=== PATIENT | female | born 1955 | race Caucasian/White ===

== ENCOUNTER 2016-10-23 23:36 | Emergency (ER) | payer OTHER ==
--- NOTE | 2016-10-24 02:25 | ED ORDER SUMMARY ---
..... Patient: RIA WEST OrderSheet [facility] VisitID: [id number] [place] [address] 61y, F Registration Date/Time: 10/23/2016 ORDER SHEET Weight: 62.1 kg (stated) Allergies: Duloxetine, Phenytoin, Sulfa Antibiotics GENERAL ORDERS: Chest 1V Urgent (:10/24/2016 Nelida OVIEDO) (1:25 RFay) Shoulder 2V or more Right Urgent (:10/24/2016 Nelida OVIEDO) (1:25 RFay) CBC w Diff Urgent (:10/24/2016 Nelida OVIEDO) (Ack 1:41 Zhang) (1:58 JQuivey R.N.) CMP Urgent (:10/24/2016 Nelida OVIEDO) (Ack 1:41 Zhang) (1:58 JQuivey R.N.) UA-Culture if indicated Urgent (:10/24/2016 Nelida OVIEDO) (Ack 1:41 Zhang) (1:55 JQuivey R.N.) MEDICATION ORDERS: Acetaminophen PO 650 mg (NOW) (01:01 10/24/2016 Nelida OVIEDO) (Ack 1:05 JDeElena R.N.) Ibuprofen PO 800 mg (NOW) (:10/24/2016 Nelida OVIEDO) (Ack 1:05 JDeElena R.N.) (Cancelled: Patient Refusal1:55 JQuivey R.N.) IV FLUIDS: Dilaudid IV 1 mg (HIGH ALERT MEDICATION, NOW) (01:02 10/24/2016 Nelida OVIEDO) (Ack 1:05 JDeElena R.N.) (1:58 JQuivey R.N.) IV Saline Lock (01:56 10/24/2016 JQuivey R.N. written order Nelida OVIEDO) (1:57 JQuivey R.N.) ORDER SHEET NOTES: [Electronically signed by Gonzales Villalta R.N. (03:00 10/24/2016)] [Electronically signed by Henrietta Nxi MD (13:26 11/01/2016)] [Electronically locked/signed by Gonzales Villalta R.N. (03:00 10/24/2016)]
--- NOTE | 2016-10-24 02:25 | ED NURSING NOTES ---
Clinical Report - Nurses [facility] [address] [place] [address] 10/23/2016 23:37 [id number] Triage time 23:30 Oct 23 2016. Acuity: LEVEL 3. Chief Complaint: RIGHT UPPER EXTREMITY PAIN. Location of symptoms- (and (R) Knee Pain). Alert. YUNG COMA SCORE: Lackey Coma Scale: 15- eyes open spontaneously (4); best verbal response- oriented x 4 (5); best motor response- obeys commands (6). --00:01 Gonzales Chambers R.N. 23:37 10/23/16. BP: 159/79. HR: 92. RR: 18. O2 saturation: 96% on room air. Temp: 101.2 F. Pain level now: 04/03. --00:01 Gonzales Chambers R.N. Weight: 62.1 kg stated. Height/Length: 60 inches Per Patient. BMI: 26.7. --23:39 Gonzales Chambers R.N. Medications Doc-Q-Lax Oral 100mg, daily. Famotidine Oral 10 mg, at bedtime. Gabapentin Oral 300 mg, 2x a day. Keppra Oral 1000mg, 2x a day. LamoTRIgine Oral (Tablet Dispersible 100 mg) 1 tablet, 2 x daily. Levothyroxine Sodium Oral 50 mcg, daily. Meloxicam Oral (Tablet 15 mg) 1 tablet, daily. Pantoprazole Sodium Oral 40 mg, daily. Singulair Oral 10 mg, at bedtime. --00:06 Gonzales Chambers R.N. BusPIRone HCl Oral 10 mg, 3x a day. CeleXA Oral 40 mg, daily. TiZANidine HCl Oral 4 mg, 4x a day as needed. --00:07 Gonzales Chambers R.N. Suboxone Sublingual (Film 8-2 mg) 1/2 tab, 3 x daily. TraZODone HCl Oral 100 mg, 2x a day. --00:08 Rtish, Gonzales, R.N. Timolol Maleate PF Ophthalmic (Solution 0.5 %) 1 drop OD, daily. --00:13 Gonzales Chambers R.N. Combivent Respimat Inhalation (Aerosol Solution 20-100 mcg/act) one puff, 4 x daily. Flonase Nasal 1 spray, 2x a day. --00:56 Gonzales Chambers R.N. Allergies Duloxetine. --23:43 Gonzales Chambers R.N. Phenytoin. --:47 Gonzales Chambers R.N. Sulfa Antibiotics. --:47 Gonzales Chambers R.N. History Arrived by private vehicle. Historian: patient. Accompanied by family. Primary physician (Efren). ( (R) shoulder and (R) Knee Pain, which started today. She states that she pulled herself up in bed last night and thinks that she might have strained her muscles(s). She is uncertain why the (R) Knee is hurting. She also states that she is withdrawing herself from Buprenorphine-naloxone anticipating surgery on her (L) Knee in 4 days.). This occurred today (about 12 hours ago). Treatment BAND MASTER: None. PAST MEDICAL HX: Hypertension. Tetanus status: up-to-date. SOCIAL HX: Heavy tobacco smoker (cigarette)- less than 1 pack per day. History of drug use: marijuana. No alcohol use. No infectious disease exposure. ABUSE ASSESSMENT: No report of abuse. NUTRITIONAL RISK ASSESSMENT: The nutritional risk assessment revealed no deficiencies. FUNCTIONAL ASSESSMENT: Functional assessment: no impairments noted. LEARNING NEEDS ASSESSMENT: The learning needs assessment revealed no barriers. FALL RISK ASSESSMENT: Fall risk assessment completed. Risk factors identified include severe pain and patient impairment of mobility. SKIN INTEGRITY ASSESSMENT: Skin integrity risk assessment completed. No skin integrity risk identified. --00:01 Gonzales Chambers R.N. PROBLEMS: Thyroid Disease. Seizures. PTSD. Dysphonia. Depression. Hyperlipidemia. GERD. Dysphagia. --23:56 Gonzales Chambers R.N. ADDITIONAL SURGERIES: Elbow. Hysterectomy. Knee Surgery. Laparoscopy. --23:59 Gonzales Chambers R.N. Interventions ID and allergy band on patient. To treatment room. --00:01 Gonzales Chambers R.N. PHYSICAL ASSESSMENT To room via wheelchair. GENERAL / NEURO / PSYCH: Oriented X 4. Appears in pain. EXTREMITIES: Limited ROM present in the right shoulder and right knee. No upper extremity edema. SKIN: Skin intact. Skin is warm and dry. --00:00 Gonzales Chambers R.N. NURSING PROGRESS NOTES Patient gowned. Reassurance given. Patient identifiers checked. Call light placed in reach. Side rails up x 2. Bed placed in lowest position. Brakes of bed on. Patient ready for evaluation- chart flagged and ED physician notified. --00:00 Gonzales Chambers R.N. 01:49 10/24/2016 Site #1 started via IV in the right hand with an 20g angiocath, with aseptic technique and good blood return; one attempt. Blood drawn: rainbow set. Labeled in the presence of the patient and sent to the lab. Saline lock flushed with 10 mL saline. --01:57 Gonzales Villalta R.N. 01:50 10/24/2016 Acetaminophen (APAP) PO 650 mg given. Allergies verified and confirmed 5 rights. --01:55 Gonzales Villalta R.N. 01:56 10/24/2016 Dilaudid (HYDROmorphone HCl PF) IVP 1 mg given over 2 minute(s) via site #1. Allergies verified, confirmed 5 rights and sedative warning given to the patient. IV patency established. IV site checked: no pain, redness, or swelling. IV flushed thoroughly pre- and post-medication administration. --01:58 Gonzales Villalta R.N. 02:36. The patient is calm and resting quietly. GENERAL / NEURO / PSYCH: Alert. Oriented X 4. RESPIRATORY: No respiratory distress. EXTREMITIES: Neuro-vascular status intact to the extremity. SKIN: Skin is warm and dry. --02:42 Gonzales Villalta R.N. DISPOSITION / DISCHARGE 02:40 10/24/2016 Site #1 removed upon discharge. Catheter intact. Bandage applied. --02:40 Gonzales Villalta R.N. Departure time: 02:40. Condition at departure: stable. No learning barriers present. Discharge instructions provided and reviewed with rack washer and the patient. Reviewed medication(s) side effects, precautions, dosing and course information. Prescription(s) given to the patient. Patient and rack washer verbalized understanding. Written instructions provided in Hungarian. The patient was discharged home and accompanied by rack washer. She left the Emergency Department in a wheelchair and via private vehicle. Book Canvasser driving. FALL RISK ASSESSMENT: Fall risk assessment completed. No fall risk identified. --02:40 Gonzales Villalta R.N. 02:32 10/24/16. BP: 136/59. HR: 83. RR: 16. O2 saturation: 96% on room air. Temp: 99.5 F (oral). Pain level now: 11/01. --02:40 Gonzales Villalta R.N. Locked/Released at 10/24/2016 3:00 by Gonzales Villalta R.N.
--- NOTE | 2016-10-24 02:25 | ED ORDER SUMMARY ---
..... Patient: RIA WEST OrderSheet [facility] VisitID: [id number] [place] [address] 61y, F Registration Date/Time: 10/23/2016 ORDER SHEET Weight: 62.1 kg (stated) Allergies: Duloxetine, Phenytoin, Sulfa Antibiotics GENERAL ORDERS: Chest 1V Urgent (:10/24/2016 Nelida OVIEDO) (1:25 RFay) Shoulder 2V or more Right Urgent (:10/24/2016 Nelida OVIEDO) (1:25 RFay) CBC w Diff Urgent (:10/24/2016 Nelida OVIEDO) (Ack 1:41 Zhang) (1:58 JQuivey R.N.) CMP Urgent (:10/24/2016 Nelida OVIEDO) (Ack 1:41 Zhang) (1:58 JQuivey R.N.) UA-Culture if indicated Urgent (:10/24/2016 Nelida OVIEDO) (Ack 1:41 Zhang) (1:55 JQuivey R.N.) MEDICATION ORDERS: Acetaminophen PO 650 mg (NOW) (01:01 10/24/2016 Nelida OVIEDO) (Ack 1:05 JDeElena R.N.) Ibuprofen PO 800 mg (NOW) (:10/24/2016 Nelida OVIEDO) (Ack 1:05 JDeElena R.N.) (Cancelled: Patient Refusal1:55 JQuivey R.N.) IV FLUIDS: Dilaudid IV 1 mg (HIGH ALERT MEDICATION, NOW) (01:02 10/24/2016 Nelida OVIEDO) (Ack 1:05 JDeElena R.N.) (1:58 JQuivey R.N.) IV Saline Lock (01:56 10/24/2016 JQuivey R.N. written order Nelida OVIEDO) (1:57 JQuivey R.N.) ORDER SHEET NOTES: [Electronically signed by Gonzales Villalta R.N. (03:00 10/24/2016)] [Electronically signed by Henrietta Nix MD (13:26 11/01/2016)] [Electronically locked/signed by Gonzales Villalta R.N. (03:00 10/24/2016)]
--- NOTE | 2016-10-24 02:25 | ED CLINICAL REPORT ---
Clinical Report - Physicians/Mid Levels [facility] [address] [place] [address] 10/23/2016 23:37 Patient: RIA WEST Time Seen: 23:42. Arrived- By private vehicle. Historian- patient. HISTORY OF PRESENT ILLNESS Chief Complaint: R shoulder and R knee pain. At its maximum, severity described as moderate. When seen in the E.D., severity described as moderate. Modifying factors- worsened by movement. Not relieved by anything. This started last night shoulder--R knee started hurting within the past couple of days and is still present. No current or associated symptoms. (Pt states she is preparing for left knee surgery, so she has been taken off of her pain medication. Since then, her R knee has started to hurt more, though pt states it is chronically painful, due to using it more than the L leg. Pt states that last night, she pulled herself up in bed, and thinks she might have strained her R shoulder.). Similar symptoms previously: Recent medical care: The patient was seen recently at another facility in a clinic. REVIEW OF SYSTEMS No fever, sore throat, sinus drainage, nasal congestion or cough. No difficulty breathing, chest pain, abdominal pain, nausea or vomiting. No diarrhea, black stools, bloody stools, chills or difficulty with urination. No skin rash, back pain, calf pain, headache or blackouts. No double vision. No difficulty with ambulation. All systems otherwise negative, except as recorded above. PAST HISTORY Problems: Hypertension. Thyroid Disease. Seizures. PTSD. Dysphonia. Depression. Hyperlipidemia. GERD. Dysphagia. Additional Surgeries: Elbow. Hysterectomy. Knee Surgery. Laparoscopy. Medications: Combivent Respimat Inhalation (Aerosol Solution 20-100 mcg/act) one puff, 4 x daily. Flonase Nasal 1 spray, 2x a day. Timolol Maleate PF Ophthalmic (Solution 0.5 %) 1 drop OD, daily. Suboxone Sublingual (Film 8-2 mg) 1/2 tab, 3 x daily. TraZODone HCl Oral 100 mg, 2x a day. BusPIRone HCl Oral 10 mg, 3x a day. CeleXA Oral 40 mg, daily. TiZANidine HCl Oral 4 mg, 4x a day as needed. Doc-Q-Lax Oral 100mg, daily. Famotidine Oral 10 mg, at bedtime. Gabapentin Oral 300 mg, 2x a day. Keppra Oral 1000mg, 2x a day. LamoTRIgine Oral (Tablet Dispersible 100 mg) 1 tablet, 2 x daily. Levothyroxine Sodium Oral 50 mcg, daily. Meloxicam Oral (Tablet 15 mg) 1 tablet, daily. Pantoprazole Sodium Oral 40 mg, daily. Singulair Oral 10 mg, at bedtime. Allergies: Duloxetine. Phenytoin. Sulfa Antibiotics. SOCIAL HISTORY Smoker- current status unknown. History of drug use: marijuana. No alcohol use. ADDITIONAL NOTES The nursing notes have been reviewed. PHYSICAL EXAM Vital Signs: 10/23/2016 23:37 BP: 159/79. HR: 92. RR: 18. O2 saturation: 96%. Temp: 101.2 F. Pain level now: 04/03. Have been reviewed. Appearance: Alert. No acute distress. Eyes: Pupils equal, round and reactive to light. Eyes normal inspection. ENT: Nose normal. Pharynx normal. Neck: Normal inspection. CVS: Normal heart rate and rhythm. Heart sounds normal. Pulses normal. Respiratory: No respiratory distress. Breath sounds normal. Chest nontender. Abdomen: No visible injury. Soft and nontender. Obese. Back: Normal inspection. No CVA tenderness. Skin: Skin warm and dry. Normal skin color. No rash. Normal skin turgor. Extremities: Right shoulder: moderate tenderness located in the anterior aspect of the shoulder and AC joint. Limited ROM due to pain (diminished abduction, extension and internal rotation). Neurovascular intact distally. No erythema, swelling, laceration, abrasion or ecchymosis. No puncture wound, foreign body or deformity. No joint effusion. No lower extremity edema. (PT has tenderness of her R knee along the joint line, but no instability. No erythema. ROM is mildly limited.). Neuro: Oriented X 3. No motor deficit. No sensory deficit. LABS, X-RAYS, AND EKG Chest X-ray: No acute disease. Normal lung markings present. Normal heart size. Mediastinum normal. Great vessels normal. Soft tissues normal. No infiltrate. No fracture. No bony lesion present. Views: PA and lateral. Technique: good. The X-rays were independently viewed by me and interpreted contemporaneously by me. Prior films were not available for comparison. Rt Shoulder X-ray: No fracture. Normal alignment. No bony lesion, air in the soft tissue or foreign body. Soft tissues normal. Joint spaces normal. Views: AP with external rotation, AP with internal rotation and axillary. Technique: good. The X-rays were independently viewed by me and interpreted contemporaneously by me. Prior films were not available for comparison. Laboratory Tests: UA-Culture if indicated: (JEMIMA: 10/24/2016 01:00) ( MsgRcvd 10/24/2016 01:33) Final results Test Result Flag Units (Reference) URINE COLOR YELLOW URINE APPEARANCE CLEAR URINE GLUCOSE NEGATIVE (NEGATIVE) URINE BILIRUBIN NEGATIVE (NEGATIVE) URINE KETONE NEGATIVE (NEGATIVE) URINE SPECIFIC GRAVITY <= 1.005 L (1.010-1.030) URINE PH 6.0 (5.0-8.0) URINE PROTEIN NEGATIVE (NEGATIVE) URINE UROBILINOGEN 0.2 EU/dL (0.2-1.0) URINE NITRITE NEGATIVE (NEGATIVE) URINE BLOOD 1+ (NEGATIVE) URINE LEUK ESTERASE NEGATIVE (NEGATIVE) URINE RBC 1-3 rbc/hpf (0-1) URINE WBC 0-1 wbc/hpf (0-1) URINE EPITHELIAL CELLS 0-1 EPI/hpf (0-5) URINE BACTERIA NONE SEEN (NONE SEEN) URINE COMMENT CULT NOT INDICATED URINE CULTURES ARE SET-UP BASED ON THE FOLLOWING CRITERIA:POSITIVE NITRITEPOSITIVE LEUKOCYTE ESTERASEGREATER THAN 10 WHITE BLOOD CELLSMODERATE (2+) OR GREATER BACTERIA CBC w Diff: (JEMIMA: 10/24/2016 01:45) ( MsgRcvd 10/24/2016 01:59) Final results Test Result Flag Units (Reference) WHITE BLOOD COUNT 10.8 K/uL (4.5-11.5) RED BLOOD COUNT 4.18 M/uL (4.00-5.20) HEMOGLOBIN 13.0 gm/dL (12.0-16.0) HEMATOCRIT 38.5 % (36.0-46.0) MEAN CELL VOLUME 92 fL (80-100) MEAN CORPUSCULAR HGB 31 pg (26-34) MEAN CORPUSCULAR HGB CONC 34 g/dL (31-37) RED CELL DISTRIBUTION WIDTH 13.2 % (11.6-14.8) PLATELET COUNT 270 K/uL (150-400) NEUTROPHIL % 64.2 % (50-75) LYMPH % 22.4 L % (25-40) MONO % 11.1 % (3-14) EOSINOPHIL % 1.9 % (0-4) BASOPHIL % 0.4 % (0-2) CMP: (JEMIMA: 10/24/2016 01:45) ( MsgRcvd 10/24/2016 02:10) Final results Test Result Flag Units (Reference) GLUCOSE 120 H mg/dL (70-110) BUN 10 mg/dL (7-18) CREATININE 0.8 mg/dL (0.6-1.3) Estimated GFR >60 mL/min Estimated GFR- >60 mL/min Note: Persistent reduction over 3 months in eGFR<60 mL/min/1.73 m2 defines CKD. Patients with eGFR values>=60 mL/min/1.73 m2 may also have CKD if evidence ofpersistent proteinuria. Additional information may be foundat www.kidney.org. SODIUM 142 mmol/L (136-145) POTASSIUM 3.8 mmol/L (3.5-5.1) CHLORIDE 103 mmol/L (98-107) CARBON DIOXIDE 26 mmol/L (21-32) CALCIUM 9.4 mg/dL (8.5-10.1) TOTAL PROTEIN 7.6 g/dL (6.4-8.2) ALBUMIN 3.9 g/dL (3.3-5.0) BILIRUBIN, TOTAL 0.4 mg/dL (0.0-1.0) ALKALINE PHOSPHATASE 106 U/L (46-116) AST (SGOT) 22 U/L (15-37) ALT (SGPT) 18 U/L (12-78) . Pulse Oximetry: 10/23/2016 23:37 O2 saturation: 96%. (FIO2 - room air). Interpretation: normal. PROGRESS AND PROCEDURES Course of Care: PT was given a dose of Dilaudid for her pain, and Tylenol for fever (pt refused ibuprofen). She was unaware that she had a fever, and had not felt ill. While pt's ROM was limited to some degree in her shoulder, she had plenty of movement overall, and I did not find evidence of a septic R knee or shoulder. Pt was worked up for her sx, both to try to find a source for the fever, and to assess her acute R shoulder pain (knee pain was chronic). Work-up was negative. No emergent condition was identified. Patient counseled in person regarding the patient's stable condition, test results, diagnosis and need for follow-up. Concerns were addressed. Old medical records reviewed. Disposition: Discharged. Condition: stable. CLINICAL IMPRESSION Acute right knee pain. Muscle strain of the right shoulder. INSTRUCTIONS (Your x-rays look good, as do your labs. Your fever may be due to a viral illness that your body is fighting off. There is no evidence of a bacterial infection causing this at this time. Please follow up, as planned for your surgery this week. You may consider using something less strong than Suboxone for pain (Vicodin, for example), if this is okay with your regular doctor.). Warnings: SEDATIVE MEDICATION: You were given sedative medication during your visit. Do not drive or operate dangerous machinery for 6 hours. GENERAL WARNINGS: Return or contact your physician immediately if your condition worsens or changes unexpectedly, if not improving as expected, or if other problems arise. Your Current Medications: CONTINUE TAKING THE FOLLOWING MEDICATIONS: BusPIRone HCl Oral : 10 mg 3x a day. CeleXA Oral : 40 mg daily. Famotidine Oral : 10 mg at bedtime. Flonase Nasal : 1 spray 2x a day. Gabapentin Oral : 300 mg 2x a day. Keppra Oral : 1000mg 2x a day. LamoTRIgine Oral : Tablet Dispersible 100 mg, 1 tablet 2 x daily. Levothyroxine Sodium Oral : 50 mcg daily. Pantoprazole Sodium Oral : 40 mg daily. Singulair Oral : 10 mg at bedtime. Suboxone Sublingual : Film 8-2 mg, 1/2 tab 3 x daily. Timolol Maleate PF Ophthalmic : Solution 0.5 %, 1 drop OD daily. TiZANidine HCl Oral : 4 mg 4x a day, prn. TraZODone HCl Oral : 100 mg 2x a day. Prescription Medications: Hydrocodone/APAP 5mg / 325mg: take 1-2 orally every 6 hours as needed for pain. Dispense twelve (12). No refill. Follow-up: Follow up with your doctor as scheduled. Understanding of the discharge instructions verbalized by patient and family. (Electronically signed by Henrietta Nix MD 11/01/2016 13:26)
--- NOTE | 2016-10-24 02:25 | ED NURSING NOTES ---
Clinical Report - Nurses [facility] [address] [place] [address] 10/23/2016 23:37 [id number] Triage time 23:30 Oct 23 2016. Acuity: LEVEL 3. Chief Complaint: RIGHT UPPER EXTREMITY PAIN. Location of symptoms- (and (R) Knee Pain). Alert. YUNG COMA SCORE: [place] Coma Scale: 15- eyes open spontaneously (4); best verbal response- oriented x 4 (5); best motor response- obeys commands (6). --00:01 Gonzales Chambers R.N. 23:37 10/23/16. BP: 159/79. HR: 92. RR: 18. O2 saturation: 96% on room air. Temp: 101.2 F. Pain level now: 04/03. --00:01 Gonzales Chambers R.N. Weight: 62.1 kg stated. Height/Length: 60 inches Per Patient. BMI: 26.7. --23:39 Gonzales Chambers R.N. Medications Doc-Q-Lax Oral 100mg, daily. Famotidine Oral 10 mg, at bedtime. Gabapentin Oral 300 mg, 2x a day. Keppra Oral 1000mg, 2x a day. LamoTRIgine Oral (Tablet Dispersible 100 mg) 1 tablet, 2 x daily. Levothyroxine Sodium Oral 50 mcg, daily. Meloxicam Oral (Tablet 15 mg) 1 tablet, daily. Pantoprazole Sodium Oral 40 mg, daily. Singulair Oral 10 mg, at bedtime. --00:06 Gonzales Chambers R.N. BusPIRone HCl Oral 10 mg, 3x a day. CeleXA Oral 40 mg, daily. TiZANidine HCl Oral 4 mg, 4x a day as needed. --00:07 Gonzales Chambers R.N. Suboxone Sublingual (Film 8-2 mg) 1/2 tab, 3 x daily. TraZODone HCl Oral 100 mg, 2x a day. --00:08 Trish, Gonzales, R.N. Timolol Maleate PF Ophthalmic (Solution 0.5 %) 1 drop OD, daily. --00:13 Gonzales Chambers R.N. Combivent Respimat Inhalation (Aerosol Solution 20-100 mcg/act) one puff, 4 x daily. Flonase Nasal 1 spray, 2x a day. --00:56 Gonzales Chambers R.N. Allergies Duloxetine. --23:43 Gonzales Chambers R.N. Phenytoin. --:47 Gonzales Chambers R.N. Sulfa Antibiotics. --:47 Gonzales Chambers R.N. History Arrived by private vehicle. Historian: patient. Accompanied by family. Primary physician (Efren). ( (R) shoulder and (R) Knee Pain, which started today. She states that she pulled herself up in bed last night and thinks that she might have strained her muscles(s). She is uncertain why the (R) Knee is hurting. She also states that she is withdrawing herself from Buprenorphine-naloxone anticipating surgery on her (L) Knee in 4 days.). This occurred today (about 12 hours ago). Treatment CHEF INSTRUCTOR: None. PAST MEDICAL HX: Hypertension. Tetanus status: up-to-date. SOCIAL HX: Heavy tobacco smoker (cigarette)- less than 1 pack per day. History of drug use: marijuana. No alcohol use. No infectious disease exposure. ABUSE ASSESSMENT: No report of abuse. NUTRITIONAL RISK ASSESSMENT: The nutritional risk assessment revealed no deficiencies. FUNCTIONAL ASSESSMENT: Functional assessment: no impairments noted. LEARNING NEEDS ASSESSMENT: The learning needs assessment revealed no barriers. FALL RISK ASSESSMENT: Fall risk assessment completed. Risk factors identified include severe pain and patient impairment of mobility. SKIN INTEGRITY ASSESSMENT: Skin integrity risk assessment completed. No skin integrity risk identified. --00:01 Gonzales Chambers R.N. PROBLEMS: Thyroid Disease. Seizures. PTSD. Dysphonia. Depression. Hyperlipidemia. GERD. Dysphagia. --23:56 Gonzales Chambers R.N. ADDITIONAL SURGERIES: Elbow. Hysterectomy. Knee Surgery. Laparoscopy. --23:59 Gonzales Chambers R.N. Interventions ID and allergy band on patient. To treatment room. --00:01 Gonzales Chambers R.N. PHYSICAL ASSESSMENT To room via wheelchair. GENERAL / NEURO / PSYCH: Oriented X 4. Appears in pain. EXTREMITIES: Limited ROM present in the right shoulder and right knee. No upper extremity edema. SKIN: Skin intact. Skin is warm and dry. --00:00 Gonzales Chambers R.N. NURSING PROGRESS NOTES Patient gowned. Reassurance given. Patient identifiers checked. Call light placed in reach. Side rails up x 2. Bed placed in lowest position. Brakes of bed on. Patient ready for evaluation- chart flagged and ED physician notified. --00:00 Gonzales Chambers R.N. 01:49 10/24/2016 Site #1 started via IV in the right hand with an 20g angiocath, with aseptic technique and good blood return; one attempt. Blood drawn: rainbow set. Labeled in the presence of the patient and sent to the lab. Saline lock flushed with 10 mL saline. --01:57 Gonzales Villalta R.N. 01:50 10/24/2016 Acetaminophen (APAP) PO 650 mg given. Allergies verified and confirmed 5 rights. --01:55 Gonzales Villalta R.N. 01:56 10/24/2016 Dilaudid (HYDROmorphone HCl PF) IVP 1 mg given over 2 minute(s) via site #1. Allergies verified, confirmed 5 rights and sedative warning given to the patient. IV patency established. IV site checked: no pain, redness, or swelling. IV flushed thoroughly pre- and post-medication administration. --01:58 Gonzales Villalta R.N. 02:36. The patient is calm and resting quietly. GENERAL / NEURO / PSYCH: Alert. Oriented X 4. RESPIRATORY: No respiratory distress. EXTREMITIES: Neuro-vascular status intact to the extremity. SKIN: Skin is warm and dry. --02:42 Gonzales Villalta R.N. DISPOSITION / DISCHARGE 02:40 10/24/2016 Site #1 removed upon discharge. Catheter intact. Bandage applied. --02:40 Gonzales Villalta R.N. Departure time: 02:40. Condition at departure: stable. No learning barriers present. Discharge instructions provided and reviewed with frame operator and the patient. Reviewed medication(s) side effects, precautions, dosing and course information. Prescription(s) given to the patient. Patient and frame operator verbalized understanding. Written instructions provided in Estonian. The patient was discharged home and accompanied by frame operator. She left the Emergency Department in a wheelchair and via private vehicle. [employer] Supervisor driving. FALL RISK ASSESSMENT: Fall risk assessment completed. No fall risk identified. --02:40 Gonzales Villalta R.N. 02:32 10/24/16. BP: 136/59. HR: 83. RR: 16. O2 saturation: 96% on room air. Temp: 99.5 F (oral). Pain level now: 11/01. --02:40 Gonzales Villalta R.N. Locked/Released at 10/24/2016 3:00 by Gonzales Villalta R.N.
--- NOTE | 2016-10-24 07:21 | DIAGNOSTIC IMAGING REPORT ---
PROCEDURE: XR CHEST 1 VIEW INDICATION: FEVER TECHNIQUE: Portable AP view (0115 hours). COMPARISON: None. FINDINGS: Lungs are clear. Heart and mediastinum are normal. Thorax is normal. IMPRESSION: 1. Negative chest.
--- NOTE | 2016-10-24 07:35 | DIAGNOSTIC IMAGING REPORT ---
PROCEDURE: XR SHOULDER 2 OR MORE VW-RIGHT INDICATION: TRAUMA/INJURY TECHNIQUE: Four views. COMPARISON: None. FINDINGS: Osseous structures and joint spaces of the right shoulder are normal. There is a fracture the right lateral sixth rib (acute or old). IMPRESSION: 1. Normal right shoulder. 2. Fracture the right lateral sixth rib (acute or old). 3. Findings discussed with Dr. Henrietta Nix.
--- NOTE | 2016-11-01 13:26 | ED MAR SUMMARY ---
..... Medication Administration Record [facility] [address] [place] [address] Patient: RIA WEST Visit ID: [id number] 61y, F Weight: 62.1 kg Height/Length: 60 in BMI: 26.7 ALLERGIES: Sulfa Antibiotics, Phenytoin, Duloxetine Given 01:50 10/24/2016 Gonzales Villalta, R.N. Medication Administered: ACETAMINOPHEN [PO] (APAP), Dose: 650 mg PO. Medication Ordered: Acetaminophen PO 650 mg (NOW). Given 01:56 10/24/2016 Gonzales Villalta, R.N. Medication Administered: DILAUDID [IVP] (HYDROMORPHONE HCL PF), Dose: 1 mg IVP over 2 minute(s), Site: #1 right hand. Medication Ordered: Dilaudid IV 1 mg (HIGH ALERT MEDICATION, NOW).
--- NOTE | 2016-11-01 13:26 | ED DISCHARGE INSTRUCTIONS ---
Patient: RIA WEST General Instructions [facility] VisitID: [id number] [place] [address] 61y, F Registration Date/Time: 10/23/2016 Acute right knee pain. Muscle strain of the right shoulder. INSTRUCTIONS (Your x-rays look good, as do your labs. Your fever may be due to a viral illness that your body is fighting off. There is no evidence of a bacterial infection causing this at this time. Please follow up, as planned for your surgery this week. You may consider using something less strong than Suboxone for pain (Vicodin, for example), if this is okay with your regular doctor.). Warnings: SEDATIVE MEDICATION: You were given sedative medication during your visit. Do not drive or operate dangerous machinery for 6 hours. GENERAL WARNINGS: Return or contact your physician immediately if your condition worsens or changes unexpectedly, if not improving as expected, or if other problems arise. Your Current Medications: CONTINUE TAKING THE FOLLOWING MEDICATIONS: BusPIRone HCl Oral : 10 mg 3x a day. CeleXA Oral : 40 mg daily. Famotidine Oral : 10 mg at bedtime. Flonase Nasal : 1 spray 2x a day. Gabapentin Oral : 300 mg 2x a day. Keppra Oral : 1000mg 2x a day. LamoTRIgine Oral : Tablet Dispersible 100 mg, 1 tablet 2 x daily. Levothyroxine Sodium Oral : 50 mcg daily. Pantoprazole Sodium Oral : 40 mg daily. Singulair Oral : 10 mg at bedtime. Suboxone Sublingual : Film 8-2 mg, 1/2 tab 3 x daily. Timolol Maleate PF Ophthalmic : Solution 0.5 %, 1 drop OD daily. TiZANidine HCl Oral : 4 mg 4x a day, prn. TraZODone HCl Oral : 100 mg 2x a day. Prescription Medications: Hydrocodone/APAP 5mg / 325mg: take 1-2 orally every 6 hours as needed for pain. Dispense twelve (12). No refill. Follow-up: Follow up with your doctor as scheduled. Understanding of the discharge instructions verbalized by patient and family. ADDITIONAL INFORMATION Osteoarthritis Osteoarthritis (also called Degenerative Joint Disease) is the most common form of arthritis in adults over 50. It is not the same as Rheumatoid Arthritis. The exact cause is not known but may be related to excess wear and tear on the joint over a long period of time. Prior injury to that joint, or repeated stress on a joint can also cause this type of arthritis. Osteoarthritis most often affects the hands, knees, spine and hips (in that order). The most common symptoms are joint stiffness, pain and swelling. Home Care: When a joint is more sore than usual, rest that joint for a day or two. Heat is very helpful. This can be provided by taking hot baths, applying a heating pad for up to 30 minutes at a time. Because symptoms are usually worse in the morning, many patients like to take a hot bath just after awakening to relax the muscle and soothe the joints. Exercise is the most important part of home treatment for osteoarthritis. This prevents the muscles and ligaments around the joint from becoming weak and helps maintain the full range of joint motion. This limits further damage to the joint. If you are overweight, this puts a lot of extra strain on weight-bearing joints of the lower back, hips, knees, feet and ankles. Losing weight will improve your arthritis symptoms in these joints. Talk to your doctor about a safe and effective weight loss program for yourself. Anti-inflammatory medicine such as ibuprofen (Advil, Motrin) or naproxen (Aleve) is often used to treat this condition. If this alone is not helping, your doctor may prescribe a stronger medicine. If narcotic pain medicines have been prescribed, they should be used in addition to anti-inflammatory drugs and only for severe pain. Follow Up with your doctor as advised by our staff. Get Prompt Medical Attention if any of the following occur: Redness or swelling of a painful joint Fever of 100.4F (38C) or higher, or as directed by your healthcare provider Worsening joint pain You have been given the following additional information: Osteoarthritis (Electronically signed by Henrietta Nix MD 11/01/2016 13:26)
--- NOTE | 2016-11-01 13:26 | ED MAR SUMMARY ---
..... Medication Administration Record [facility] [address] [place] [address] Patient: RIA WEST Visit ID: [id number] 61y, F Weight: 62.1 kg Height/Length: 60 in BMI: 26.7 ALLERGIES: Sulfa Antibiotics, Phenytoin, Duloxetine Given 01:50 10/24/2016 Gonzales Villalta, R.N. Medication Administered: ACETAMINOPHEN [PO] (APAP), Dose: 650 mg PO. Medication Ordered: Acetaminophen PO 650 mg (NOW). Given 01:56 10/24/2016 Gonzales Villalta, R.N. Medication Administered: DILAUDID [IVP] (HYDROMORPHONE HCL PF), Dose: 1 mg IVP over 2 minute(s), Site: #1 right hand. Medication Ordered: Dilaudid IV 1 mg (HIGH ALERT MEDICATION, NOW).
--- NOTE | 2016-11-01 13:26 | ED MED RECONCILIATION SUMMARY ---
Patient: RIA WEST Medication Reconciliation Report [facility] VisitID: [id number] [address] [place] [address] 61y, F Registration Date/Time: 10/23/2016 Weight: 62.1 kg Height/Length: 60 in. BMI: 26.7 ALLERGIES: Duloxetine, Phenytoin, Sulfa Antibiotics The patient's Home Medications are listed below: CONTINUE TAKING THE FOLLOWING MEDICATIONS: BusPIRone HCl Oral 10 mg, 3x a day CeleXA Oral 40 mg, daily Famotidine Oral 10 mg, at bedtime Flonase Nasal 1 spray, 2x a day Gabapentin Oral 300 mg, 2x a day Keppra Oral 1000mg, 2x a day LamoTRIgine Oral (100 mg) 1 tablet, 2 x daily Levothyroxine Sodium Oral 50 mcg, daily Pantoprazole Sodium Oral 40 mg, daily Singulair Oral 10 mg, at bedtime Suboxone Sublingual (8-2 mg) 1/2 tab, 3 x daily Timolol Maleate PF Ophthalmic (0.5 %) 1 drop OD, daily TiZANidine HCl Oral 4 mg, 4x a day TraZODone HCl Oral 100 mg, 2x a day THE FOLLOWING MEDICATIONS NEED TO BE RECONCILED: Combivent Respimat Inhalation (20-100 mcg/act) one puff, 4 x daily Doc-Q-Lax Oral 100mg, daily Meloxicam Oral (15 mg) 1 tablet, daily The source(s) of the original Home Medication information: Not obtained. The following Medications were given to the patient in the Emergency Department: Acetaminophen [PO] PO 650 mg, administered: 10/24/2016 1:50:00 AM Dilaudid [IVP] IVP 1 mg, administered: 10/24/2016 1:56:00 AM The following Medications were prescribed to the patient: Hydrocodone/APAP 5mg / 325mg: take 1-2 orally every 6 hours as needed for pain. Dispense twelve (12). No refill. -- Henrietta Nix MD
--- NOTE | 2016-11-01 13:26 | ED MED RECONCILIATION SUMMARY ---
Patient: RIA WEST Medication Reconciliation Report [facility] VisitID: [id number] [address] [place] [address] 61y, F Registration Date/Time: 10/23/2016 Weight: 62.1 kg Height/Length: 60 in. BMI: 26.7 ALLERGIES: Duloxetine, Phenytoin, Sulfa Antibiotics The patient's Home Medications are listed below: CONTINUE TAKING THE FOLLOWING MEDICATIONS: BusPIRone HCl Oral 10 mg, 3x a day CeleXA Oral 40 mg, daily Famotidine Oral 10 mg, at bedtime Flonase Nasal 1 spray, 2x a day Gabapentin Oral 300 mg, 2x a day Keppra Oral 1000mg, 2x a day LamoTRIgine Oral (100 mg) 1 tablet, 2 x daily Levothyroxine Sodium Oral 50 mcg, daily Pantoprazole Sodium Oral 40 mg, daily Singulair Oral 10 mg, at bedtime Suboxone Sublingual (8-2 mg) 1/2 tab, 3 x daily Timolol Maleate PF Ophthalmic (0.5 %) 1 drop OD, daily TiZANidine HCl Oral 4 mg, 4x a day TraZODone HCl Oral 100 mg, 2x a day THE FOLLOWING MEDICATIONS NEED TO BE RECONCILED: Combivent Respimat Inhalation (20-100 mcg/act) one puff, 4 x daily Doc-Q-Lax Oral 100mg, daily Meloxicam Oral (15 mg) 1 tablet, daily The source(s) of the original Home Medication information: Not obtained. The following Medications were given to the patient in the Emergency Department: Acetaminophen [PO] PO 650 mg, administered: 10/24/2016 1:50:00 AM Dilaudid [IVP] IVP 1 mg, administered: 10/24/2016 1:56:00 AM The following Medications were prescribed to the patient: Hydrocodone/APAP 5mg / 325mg: take 1-2 orally every 6 hours as needed for pain. Dispense twelve (12). No refill. -- Henrietta Nix MD
== END 2016-10-24 02:40 | disposition home or self-care (01) ==
LOC: ED SRH 23:36
DX: S46.911A Strain of unspecified muscle, fascia and tendon at shoulder and upper arm level, right arm, initial encounter (principal); M25.561 Pain in right knee; X50.1XXA Overexertion from prolonged static or awkward postures, initial encounter; Y93.89 Activity, other specified; Y92.003 Bedroom of unspecified non-institutional (private) residence as the place of occurrence of the external cause; Y99.9 Unspecified external cause status; I10 Essential (primary) hypertension; E07.9 Disorder of thyroid, unspecified; E78.5 Hyperlipidemia, unspecified; Z79.51 Long term (current) use of inhaled steroids